=== PATIENT | female | born 1960 | race Caucasian/White ===

== ENCOUNTER 2021-01-25 09:09 | Inpatient (IN) | payer OTHER ==
[~2021-01-25] VITALS: Ht 165.1 cm; Wt 102.5 kg
[~2021-01-25 09:09] MED LIST: CELEXA20 MG PO; GUAIFENESIN-CO118 ML PO; NEURONTIN 300300 M1 PO; OMEPRAZOLE20 M2 PO; PROAIR HFA8.5 GM INH
[2021-01-25 09:21] VITALS: BP 141/84
[2021-01-25 10:11] LABS: ABSOLUTE LYMPHOCYTES 0.9 thou/uL (0.8-5.3); ABSOLUTE MONOCYTES 0.4 thou/uL (0.0-1.2); BASOPHILS 0.3 %; HEMATOCRIT 38.4 % (37.0-47.0); HEMOGLOBIN 12.8 gm/dL (12.0-15.0); LYMPHOCYTES 17.7 %; MCH 25.2 pg (26.0-34.0); MCHC 33.2 g/dL (28.0-37.0); MCV 75.9 fL (80.0-100.0); MONOCYTES 7.2 %; MPV 7.2 fl. (7.2-11.1); NUCLEATED RBCS 0 /100WBC; PLATELET COUNT* 240 thou/uL (150-400); POLYS 74.8 %; RBC 5.06 mil/uL (4.20-5.00); RDW-CV 15.1 % (10.5-14.5); WBC 5.3 thou/uL (4.0-11.0)
[2021-01-25 10:25] LABS: CALCIUM 7.6 mg/dL (8.5-10.1); CREATININE 0.8 mg/dL (0.6-1.3); POTASSIUM 3.5 mmol/L (3.5-5.1)
[2021-01-25 10:29] LABS: PCO2 38.6 mmHg (35.0-45.0); PO2 63.4 mmHg (75.0-100.0); pH 7.446 (7.340-7.450)
[2021-01-25 10:36] LABS: ALBUMIN 3.2 g/dL (3.4-5.0); TOTAL BILIRUBIN 0.5 mg/dL (<0.1-1.0); TOTAL PROTEIN 7.6 g/dL (6.4-8.2)
--- NOTE | 2021-01-25 15:44 | NUR ---
Patient taken to CT due to patients clastiphobia exam was not compleated
[2021-01-25 16:00] VITALS: BP 117/67; BP 149/79
--- NOTE | 2021-01-25 16:04 | EKG ---
[place] [address] ELECTROCARDIOGRAM REPORT Name: RUMATONO LARY Room: [place] [address] ADM IN .R.#: [id number] Admission: 01/25/21 Attend Phys: Reyes Sanchez, Discharge: Date of : 62 Date of Service: 01/25/21 0947 Report #: [id number] THIS REPORT FOR: //name// [facility] ED Test Date: 2021-01-25 Test Time: 09:47:05 Pat Name: TONO HENDRIX Department: Room: [facility] Gender: F Certified Nurse Midwife: TERESA : 1960 Requested By: Salbador Christian Order Number: [id number] MD: Alex Sams Measurements Intervals Mission Rate: 99 P: 45 WV: 139 QRS: -4 QRSD: 80 T: 24 QT: 334 QTc: 429 Interpretive Statements Sinus rhythm No previous ECG available for comparison Electronically Signed On 01-25-2021 16:04:24 CDT by Alex Sams [email or web address] <ELECTRONICALLY SIGNED> By: Alex Sams MD, [facility] 01/25/21 1604 0947 0947 Alex Sams MD, [facility] /EPI
--- NOTE | 2021-01-25 16:32 | NUR ---
PT ORIENTED TO ROOM AND UNIT, BED LOW AND LOCKED, SIDE RAILS UPX3, CALL LIGHT IN REACH, TELE APPLIED, ENHANCED PRECAUTIONS IN PLACE. PAGE PULMONOLOGY TO INFORM PT COULD NOT TOLERATE CHEST CT R/T CLAUSTROPHOBIA. WILL CONTINUE TO ASSESS.
--- NOTE | 2021-01-25 17:43 | NUR ---
PT OFF UNIT TO CT
[2021-01-25 20:00] VITALS: BP 137/88
[2021-01-25 23:40] VITALS: BP 127/79; BP 129/76
[2021-01-26 00:05] VITALS: BP 127/79
[2021-01-26 04:01] VITALS: BP 139/84
[2021-01-26 05:47] LABS: ABSOLUTE LYMPHOCYTES 0.8 thou/uL (0.8-5.3); ABSOLUTE MONOCYTES 0.4 thou/uL (0.0-1.2); ABSOLUTE NEUTROPHILS 3.1 thou/uL (1.6-8.1); BASOPHILS 0.1 %; HEMATOCRIT 36.2 % (37.0-47.0); LYMPHOCYTES 18.3 %; MCH 24.8 pg (26.0-34.0); MCHC 33.1 g/dL (28.0-37.0); MCV 74.7 fL (80.0-100.0); MONOCYTES 9.2 %; NUCLEATED RBCS 0 /100WBC; PLATELET COUNT* 261 thou/uL (150-400); POLYS 72.4 %; RBC 4.84 mil/uL (4.20-5.00); RDW-CV 14.5 % (10.5-14.5); WBC 4.3 thou/uL (4.0-11.0)
[2021-01-26 06:08] LABS: CALCIUM 8.8 mg/dL (8.5-10.1); CREATININE 0.8 mg/dL (0.6-1.3); POTASSIUM 4.1 mmol/L (3.5-5.1)
--- NOTE | 2021-01-26 07:15 | NUR ---
CHANGE OF SHIFT BEDSIDE REPORT GIVEN PATIENT SEEN AT BEDSIDE, IN BED RESTING ASSUMED PATIENT CARE
--- NOTE | 2021-01-26 07:41 | NUR ---
ASSUMED CARE OF PT AFTER REPORT AT 1930. PT A&OX4. VSS. PHYSICAL ASSESSMENT COMPLETED AND CHARTED. INCREASED O2 FROM NC 4L TO HEATED HI FLOW 80% 40L OVERNIGHT DUE TO EPISODES OF DESATURATION. PT DENIES ANY PAIN. HOOKED 1 UNIT OF CONVALESCENT PLASMA. PT ABLE TO SLEEP WELL ON BED. MAINTAINED ON ENHANCED ISOLATION. CALL LIGHT WITHIN REACH.
[2021-01-26 08:00] VITALS: BP 139/85
[2021-01-26 12:00] VITALS: BP 121/77
[2021-01-26 14:50] VITALS: BP 155/60; BP 163/86
[2021-01-26 20:00] VITALS: BP 121/77
[2021-01-27 00:14] VITALS: BP 120/65
--- NOTE | 2021-01-27 03:50 | NUR ---
ASSUMED CARE OF PT AFTER REPORT AT 1930. PT A&OX4. VSS. PHYSICAL ASSESSMENT COMPLETED AND CHARTED. PT ON O2 AT HEATED HIGHFLOW 75%/40L. PT TRACING SR ON TELE. PT UPADLIB TO BSC. PT DENIES ANY PAIN. MAINTAINED ON ENHANCED PRECAUTION. CALL LIGHT WITHIN REACH.
[2021-01-27 04:11] VITALS: BP 153/91
[2021-01-27 05:16] LABS: HEMATOCRIT 36.7 % (37.0-47.0); HEMOGLOBIN 12.1 gm/dL (12.0-15.0); MCHC 32.9 g/dL (28.0-37.0); MCV 75.8 fL (80.0-100.0); RBC 4.84 mil/uL (4.20-5.00); RDW-CV 14.5 % (10.5-14.5); WBC 10.9 thou/uL (4.0-11.0)
[2021-01-27 05:37] LABS: ALBUMIN 3.3 g/dL (3.4-5.0); CALCIUM 8.4 mg/dL (8.5-10.1); MAGNESIUM 2.3 mg/dL (1.8-2.4); POTASSIUM 3.6 mmol/L (3.5-5.1); TOTAL BILIRUBIN 0.2 mg/dL (<0.1-1.0); TOTAL PROTEIN 7.6 g/dL (6.4-8.2)
--- NOTE | 2021-01-27 07:25 | NUR ---
CHANGE OF SHIFT BEDSIDE REPORT GIVEN PATIENT SEEN AT BEDSIDE, IN BED RESTING ASSUMED PATIENT CARE
[2021-01-27 08:00] VITALS: BP 129/68
[2021-01-27 13:00] VITALS: BP 122/67
[2021-01-27 16:25] VITALS: BP 158/67
[2021-01-27 19:30] VITALS: BP 124/77
[2021-01-28 00:20] VITALS: BP 130/69
[2021-01-28 04:11] VITALS: BP 127/74
[2021-01-28 04:54] LABS: HEMATOCRIT 35.7 % (37.0-47.0); HEMOGLOBIN 11.7 gm/dL (12.0-15.0); MCHC 32.9 g/dL (28.0-37.0); MPV 6.8 fl. (7.2-11.1); RBC 4.7 mil/uL (4.20-5.00); RDW-CV 14.4 % (10.5-14.5); WBC 7.9 thou/uL (4.0-11.0)
[2021-01-28 05:19] LABS: ALBUMIN 3.1 g/dL (3.4-5.0); CALCIUM 8.2 mg/dL (8.5-10.1); CREATININE 0.9 mg/dL (0.6-1.3); MAGNESIUM 2.4 mg/dL (1.8-2.4); POTASSIUM 3.5 mmol/L (3.5-5.1); TOTAL BILIRUBIN 0.2 mg/dL (<0.1-1.0); TOTAL PROTEIN 6.9 g/dL (6.4-8.2)
--- NOTE | 2021-01-28 05:53 | NUR ---
PT SLEPT MOST OF SHIFT. ASSESSMENT DOCUMENTED. MEDS GIVEN PER E-MAR. IV PATENT. NO REPORTS OF PAIN. ISOLATION MAINTAINED. HHFNC WORN ALL SHIFT. ISOLATION MAINTAINED. WILL CONTINUE WITH PLAN OF CARE.
[2021-01-28 08:00] VITALS: BP 150/72
[2021-01-28 12:00] VITALS: BP 120/77
--- NOTE | 2021-01-28 12:26 | NUR ---
CM ASSESSMENT: PT COVID POSITIVE PRIOR TO ADMISSION PER INFECTION CONTROL NURSE. PT REMAINS UNDER ENHANCED PRECAUTIONS. PT REMAINS ON 45L O2. CM CONTACTED PT'S SPOUSE TO COMPLETE CM ASSESSMENT. PT'S SPOUSE INFORMS THAT THE PT IS NORMALLY VERY INDEPENDENT AND ACTIVE. PT USES 0 DME. PT HAS 0 HX OF HH OR SNF. CM D/C PLANNING NEEDS AT D AT THIS TIME. HOWEVER PT MAY NEED HOME 02 AT D/C PENDING ABILITY TO WEAN PT'S O2 NEEDS. CM WILL REMAIN AVAILABLE TO ASSIST AND FOLLOW NEEDED.
[2021-01-28 16:00] VITALS: BP 123/79
--- NOTE | 2021-01-28 16:48 | 2DMMODE ---
[place] [address] 2 D/M-MODE ECHOCARDIOGRAM Name: RUMATONO LARY Room: [place] [address] ADM IN .R.#: [id number] Admission: 01/25/21 Attend Phys: Reyes Sanchez, Discharge: Date of : 62 Date of Service: 01/28/21 1648 Report #: [id number] THIS REPORT FOR: cc: Matthew Rodas John E. DO Holkins,Matthew Perez MD [facility] ~ APPROVED REPORT Study performed: 01/28/2021 15:10:13 EXAM: Comprehensive 2D, Doppler, and color-flow Echocardiogram Patient Location: In-Patient Room #: 233 Status: routine BSA: 2.08 HR: 81 bpm BP: 150/72 mmHg Rhythm: NSR Other Information Study Quality: Good Indications Dyspnea 2D Dimensions IVSd: 12.69 (7-11mm) LVOT Diam: 21.37 (18-24mm) LVDd: 43.30 mm PWd: 11.78 (7-11mm) Ascending Ao: 33.45 (22-36mm) LVDs: 19.52 (25-40mm) Aortic Root: 34.60 mm Volumes Left Atrial Volume (Systole) LA ESV Index: 22.50 mL/m2 Aortic Valve AoV Peak Raheem.: 1.61 m/s AO Peak Gr.: 10.41 mmHg LVOT Max P.04 mmHg AO Mean Gr.: 5.76 mmHg LVOT Mean P.46 mmHg LVOT Max V: 1.58 m/s AO V2 VTI: 29.66 cm LVOT Mean V: 0.95 m/s NAYA (VTI): 3.49 cm2 LVOT V1 VTI: 28.89 [place] [address] 2 D/M-MODE ECHOCARDIOGRAM Name: TONO HENDRIX Room: [address] IN ..#: [id number] Admission: 01/25/21 Attend Phys: Reyes Sanchez, Discharge: Date of : 62 Date of Service: 01/28/21 1648 Report #: [id number] Mitral Valve E/A Ratio: 1.08 MV Decel. Time: 235.51 ms MV E Max Raheem.: 0.96 m/s MV PHT: 68.30 ms MVA (PHT): 3.22 cm2 TDI E/Lateral E': 19.20 E/Medial E': 9.60 Medial E' Raheem.: 0.10 m/s Lateral E' Raheem.: 0.05 m/s Pulmonary Valve PV Peak Raheem.: 1.20 m/s PV Peak Gr.: 5.80 mmHg Tricuspid Valve RAP Estimate: 5.00 mmHg TR Peak Gr.: 17.88 mmHg RVSP: 22.00 mmHg PA Pressure: 22.00 mmHg Left Ventricle The left ventricle is normal size. There is normal LV segmental wall motion. There is normal left ventricular wall thickness. Left ventricular systolic function is normal. The left ventricular ejection fraction is within the normal range. LVEF is 65-70%. Grade I - abnormal relaxation pattern. Right Ventricle The right ventricle is normal size. The right ventricular systolic function is normal. Atria The left atrium size is normal. The right atrium size is normal. Aortic Valve The aortic valve is normal in structure. No aortic regurgitation is present. There is no aortic valvular stenosis. Mitral Valve Mild mitral annular calcification. Trace mitral regurgitation. No evidence of mitral valve stenosis. Tricuspid Valve The tricuspid valve is normal in structure. Trace tricuspid regurgitation. [place] [address] 2 D/M-MODE ECHOCARDIOGRAM Name: TONO HENDRIX Room: [address] IN [facility]#: [id number] Admission: 01/25/21 Attend Phys: Reyes Sanchez, Discharge: Date of : 62 Date of Service: 01/28/21 1648 Report #: [id number] Pulmonic Valve The pulmonary valve is normal in structure. There is no pulmonic valvular regurgitation. Great Vessels The aortic root is normal in size. IVC is normal in size and collapses >50% with inspiration. Pericardium There is no pericardial effusion. <Conclusion> The left ventricle is normal size. Left ventricular systolic function is normal. The left ventricular ejection fraction is within the normal range. LVEF is 65-70%. Grade I - abnormal relaxation pattern. The right ventricle is normal size. The left atrium size is normal. The aortic valve is normal in structure. Mild mitral annular calcification. Trace mitral regurgitation. The tricuspid valve is normal in structure. IVC is normal in size and collapses >50% with inspiration. There is no pericardial effusion. There is normal LV segmental wall motion. <ELECTRONICALLY SIGNED> By: Matthew Archer MD, FACC 01/28/211647 47 47 Matthew Archer MD, FACC /INF
[2021-01-28 19:30] VITALS: BP 130/70
[2021-01-29 00:34] VITALS: BP 145/83
[2021-01-29 04:41] LABS: ABSOLUTE LYMPHOCYTES 1.1 thou/uL (0.8-5.3); ABSOLUTE MONOCYTES 0.4 thou/uL (0.0-1.2); ABSOLUTE NEUTROPHILS 6.1 thou/uL (1.6-8.1); BASOPHILS 0.1 %; HEMATOCRIT 35.7 % (37.0-47.0); HEMOGLOBIN 11.7 gm/dL (12.0-15.0); LYMPHOCYTES 14.8 %; MCH 24.7 pg (26.0-34.0); MCHC 32.9 g/dL (28.0-37.0); MCV 75.1 fL (80.0-100.0); MONOCYTES 5.2 %; MPV 6.9 fl. (7.2-11.1); NUCLEATED RBCS 0 /100WBC; PLATELET COUNT* 349 thou/uL (150-400); POLYS 79.9 %; RBC 4.75 mil/uL (4.20-5.00); RDW-CV 14.3 % (10.5-14.5); WBC 7.6 thou/uL (4.0-11.0)
[2021-01-29 04:49] VITALS: BP 140/83
[2021-01-29 04:54] LABS: ALBUMIN 3.3 g/dL (3.4-5.0); CALCIUM 8.4 mg/dL (8.5-10.1); CREATININE 0.8 mg/dL (0.6-1.3); MAGNESIUM 2.4 mg/dL (1.8-2.4); POTASSIUM 4.4 mmol/L (3.5-5.1); TOTAL BILIRUBIN 0.2 mg/dL (<0.1-1.0); TOTAL PROTEIN 6.7 g/dL (6.4-8.2)
--- NOTE | 2021-01-29 05:47 | NUR ---
PT SLEPT MOST OF SHIFT. ASSESSMENT DOCUMENTED. MEDS GIVEN PER E-OCT. IV PATENT. NO REPORTS OF PAIN. PT REMAINED ON HHFNC THIS SHIFT. ISOLATION MAINTAINED. PT ABLE TO MAKE NEEDS KNOWN. WILL CONTINUE WITH PLAN OF CARE.
--- NOTE | 2021-01-29 06:48 | NUR ---
PT DESATING INTO THE LOW 70'S THIS AM, O2 INCREASED FROM 35L AT 60% TO 40L AT 65%
--- NOTE | 2021-01-29 07:25 | NUR ---
CHANGE OF SHIFT BEDSIDE REPORT GIVEN PATIENT SEEN AT BEDSIDE, IN BED WATCHING TV ASSUMED PATIENT CARE
[2021-01-29 08:00] VITALS: BP 132/673
--- NOTE | 2021-01-29 08:58 | CON ---
[address] [address] CONSULTATION Name: TONO HENDRIX Room: [address] IN .R.#: [id number] Admission: 01/25/21 Attend Phys: Reyes Sanchez MD Discharge: Date of : 62 Report #: [id number] THIS REPORT FOR: cc: Matthew Rodas John E. DO Pervez, Adeel MD ~ DOC #: [id number] Saul Spence MD DATE OF CONSULTATION: 01/25/2021 Consult has been requested by Dr. Reyes Sanchez. INDICATION FOR CONSULTATION: COVID-19. HISTORY OF PRESENT ILLNESS: A 60-year-old female with past medical history as mentioned below. This does not include a history of a cardiac or respiratory disease. The patient also is a lifetime nonsmoker. The patient is now admitted with acutely worsening shortness of breath. The patient has also been tachycardic and she was hypoxemic on admission. She is currently requiring 3-4 liters of oxygen to maintain O2 saturation in the low 90s. The patient reports that her whole family has been diagnosed with COVID-19. She is also coughing and this time does have shortness of breath at rest. She says she is bringing up small amounts of yellow and white sputum. There is no chest pain. She does not have upper respiratory complaints. There is mild swelling of lower extremities. She does not have calf pain. The patient reports that she has had a fever. REVIEW OF SYSTEMS: The patient's review of systems for 12 points is negative except as mentioned above. PAST MEDICAL HISTORY: Right knee surgery, back surgery, shoulder surgery, right UNI. I understand it is an abbreviation and it is not known to me what it is being abbreviated here, , hysterectomy. SOCIAL HISTORY: Lifetime nonsmoker. No known history of heavy alcohol use or illegal drug use. CURRENT MEDICATIONS: List in [facility] reviewed. Home medication list in [facility] reviewed as well. Note that she is on a PPI at home. ALLERGIES: REPORTEDLY ALLERGIC TO PENICILLIN; however, tolerates cephalosporins without problems. FAMILY HISTORY: There is a history of COVID-19 [place] [address] CONSULTATION Name: TONO HENDRIX Room: [address] IN [facility]#: [id number] Admission: 01/25/21 Attend Phys: Reyes Sanchez MD Discharge: Date of : 62 Report #: [id number] PHYSICAL EXAMINATION: GENERAL: She is alert, awake and oriented, did appear to be short of breath at rest. VITAL SIGNS: She was tachycardic with a heart rate of around 110, blood pressure was 120/67. She was requiring 4 liters of oxygen to maintain O2 saturation in the low 90s. Respiratory rate was elevated to 22-23. She was afebrile with a temperature of 36.3. Body mass index is elevated to 36. HEAD: Normocephalic and atraumatic. NECK: Does not show raised JVP asymmetry, mass or lymph nodes. CHEST: Symmetrical expansion on inspection and palpation. On auscultation, there are fairly significant rales. There are considerable rales heard at bilateral lung bases, also some at mid zones. The amount of rales heard on exam is significantly out of proportion to the chest x-ray findings from this morning. HEART: Regular. There is no murmur. ABDOMEN: Soft and nontender. EXTREMITIES: Lower extremities show trace edema. There is no calf tenderness. SKIN: Dry and intact. NEUROLOGIC: Moves all extremities bilaterally equally and spontaneously with no focal deficit identified. LABORATORY DATA: The patient's chest x-ray does show some infiltrates, which are interstitial and consistent with COVID-19 as above. The physical examination findings are out of proportion to this x-ray. The patient's lab work in [facility] reviewed. COVID-19 antigen is positive. D-dimer is elevated. Arterial blood gas in [facility] reviewed. ASSESSMENT AND PLAN: 1. Acute hypoxemic respiratory failure secondary to COVID-19. Continue to titrate oxygen. I will go ahead and give her Brovana as well. Note that, her body mass index is elevated; therefore, if she was to deteriorate, I would recommend having a low threshold of using BiPAP. Her proBNP is not elevated. She has mild edema on exam and as below, I will give her a unit of convalescent plasma, which will be some volume, therefore I cautiously went ahead and ordered a dose of Lasix as well. We will replace potassium. 2. COVID-19, we will treat her with dexamethasone. She has already received 125 of Solu-Medrol yesterday and 10 of dexamethasone today. Since I did request Actemra, today I kept the dexamethasone dose at least 6 mg beginning tomorrow, considering that she is only on low flow oxygen, but if her respiratory status is to decline and in that case, I would recommend increasing dexamethasone. I would also go ahead and treat her with 5 doses of remdesivir, recommend following LFTs. I ordered 1 unit of convalescent plasma today as above with 40 of Lasix. If she fails to improve, then I suggest considering giving her one more unit of convalescent plasma tomorrow morning. [facility] [address] [place] [address] CONSULTATION Name: RUMATONO Room: [place] [address] ADM IN M.R.#: [id number] Admission: 01/25/21 Attend Phys: Reyes Sanchez MD Discharge: Date of : 62 Report #: [id number] 3. Elevated D-dimer/evaluation for thromboembolic phenomena. The patient is having a CTA chest today. We will follow results as above. I did give her 40 of Lasix. We will watch creatinine. 4. Pulmonary infiltrates, primarily she appears to have COVID-19; however, I agree with covering for secondary bacterial infections. She is on ceftriaxone and Zithromax. We will continue with the same. I switched her Zithromax over to p.o. We will send off a nasal swab for MRSA as well as sputum culture. 5. Deep venous thrombosis prophylaxis. She is on Lovenox. 6. Gastrointestinal prophylaxis. Note that, she is on omeprazole at home. We will keep her on Protonix. 7. Clostridium difficile prophylaxis, Lactinex. Thanks for this consultation. Saul Spence MD AP/ASHUTOSH/MICHAEL <ELECTRONICALLY SIGNED> By: Saul Spence MD 01/29/21 0858 1707 [id number] Spence MD /christina
[2021-01-29 12:13] VITALS: BP 115/73
--- NOTE | 2021-01-29 14:19 | NUR ---
PLAN OF CARE: PHYSICIAN INFORMS OF PLAN FOR THE PT TO REMAIN INPT AT THIS TIME. PT COVID POSITIVE AND REMAINS UNDER ENHANCED PRECAUTIONS. PT REMAINS ON 35L O2 AT THIS TIME. PRIOR TO ADMIT PT ACTIVE, INDEPDENT WITH ADL'S, AND USED 0 DME. CM D/C PLANNING NEEDS TBD AT THIS TIME. PT MAY NEED HOME O2 AND HH PENDING BEING ABLE TO WEAN PT'S O2 NEEDS AND MOBILITY. CM WILL REMAIN AVAILABLE TO ASSIST AND FOLLOW NEEDED.
[2021-01-29 17:24] VITALS: BP 130/74
[2021-01-29 20:49] VITALS: BP 119/66
[2021-01-30] VITALS (7 sets, daily range): BP systolic 110–135; BP diastolic 52–91
[2021-01-30 04:13] LABS: HEMATOCRIT 35.7 % (37.0-47.0); HEMOGLOBIN 11.9 gm/dL (12.0-15.0); MCH 25.2 pg (26.0-34.0); MCHC 33.4 g/dL (28.0-37.0); MCV 75.6 fL (80.0-100.0); MPV 6.8 fl. (7.2-11.1); NUCLEATED RBCS 0 /100WBC; PLATELET COUNT* 339 thou/uL (150-400); RBC 4.73 mil/uL (4.20-5.00); RDW-CV 14.3 % (10.5-14.5); WBC 8.3 thou/uL (4.0-11.0)
[2021-01-30 04:30] LABS: ALBUMIN 3.3 g/dL (3.4-5.0); CALCIUM 8.2 mg/dL (8.5-10.1); CREATININE 0.9 mg/dL (0.6-1.3); MAGNESIUM 2.3 mg/dL (1.8-2.4); POTASSIUM 4.3 mmol/L (3.5-5.1); TOTAL BILIRUBIN 0.4 mg/dL (<0.1-1.0)
[2021-01-30 05:43] LABS: ABSOLUTE LYMPHOCYTES 1.2 thou/uL (0.8-5.3); ABSOLUTE MONOCYTES 0.1 thou/uL (0.0-1.2); ANISOCYTOSIS 1+; PLATELET ESTIMATE ADEQUATE; POIKILOCYTOSIS 1+
--- NOTE | 2021-01-30 08:07 | NUR ---
PT IS ABLE TO COMMUNICATE HER NEEDS TO STAFF EFFECTIVELY. SHE HAS DENIED THE NEED FOR PAIN MEDICATION UP TO 0700 THIS MORNING. ENHANCED PRERCAUTIONS, FOR A POSITIVE COVID-19 TEST, MAINTAINED.
--- NOTE | 2021-01-30 15:56 | NUR ---
PLAN OF CARE: PHYSICIAN INFORMS OF PLAN FOR PT TO REMAIN INPT FOR A FEW MORE DAYS AND PLAN TO WEAN PT'S O2 NEEDS. PT COVID POSITIVE AND REMAINS IN ENHANCED ISOLATION. PT CURRENTLY ON 15L O2. PT MAY NEED HOME OXYGEN AT D/C AND POSSIBLY HH. D/C PLANNING NEEDS TBD. CM WILL REMAIN AVAILABLE TO ASSIST AND FOLLOW NEEDED.
--- NOTE | 2021-01-30 18:21 | NUR ---
MAIL LIST LIBRARIAN TRACKING SR TO ST. UP AD DANY IN ROOM, GAIT STEADY. 02 TITRATED TO 10HF NC. PATIENT APPEARS TO BE FEELING BETTER, LESS SOA WITH ACTIVITY. GIVEN TYLENOL EARLIER FOR COMPLAINTS OF HEADACHE, REPORTING PARTIAL RELIEF. CALL LIGHT WITHIN REACH, WILL CONTINUE WITH PLAN OF CARE.
[2021-01-31 08:24] VITALS: BP 110/72
--- NOTE | 2021-01-31 10:54 | NUR ---
ASSUMED CARE OF PT THIS AM AROUND 07- ACADEMIC AFFAIRS MANAGER IN PLACE ORDERED, TRACING SR- UPON ASSESSMENT PT NOTED TO BE RESTING IN BED- PT A&O X4- CONT OF B/B- UP AD-DANY TO BED SIDE COMMODE- COURSE LUNG SOUNDS NOTED OT UPPER LOBES/DIMINSHED IN BASES-DYSPNEA NOTED ON EXERTION- VSS, O2 SAT 98% ON 7.5L HF-REPORTED PRODUCTIVE COUGH-ABD SOFT/ROUND/NON-TENDER, BS X4 QUADS- LAST BM REPORTED X2 DAYS AGO- IV NOTED TO LEFT AC INTACT AND SL, IV ABTN GIVEN THIS AM PRESCRIBED- GOOD PO INTAKE NOTED THIS AM WITH BREAKFAST, BS MONITORED ORDERED-ISOLATION IN PLACE AND MAINTAINED INDICATED R/T COVID-PT DENIES ANY C/O PAIN/DISCOMFORT AT THIS TIME- CALL LIGHT AND PERSONAL BELONGINGS WITH IN REACH- ALL NEEDS MET AT THIS TIME
[2021-01-31 11:32] VITALS: BP 129/66
--- NOTE | 2021-01-31 12:59 | NUR ---
PLAN OF CARE: PHYSICIAN INFORMS OF PLAN FOR THE PT TO POSSIBLY REMAIN INPT THROUGH THE WEEKEND. PT COVID POSITIVE AND REMAINS IN ENHANCED PRECAUTIONS. PT REMAINS ON 7.5L O2 AND BIPAP AT [facility]. PT MAY NEED HH AND HOME OXYGEN AT D/C. CM WILL REMAIN AVAILABLE TO ASSIST AND FOLLOW NEEDED.
[2021-01-31 13:15] LABS: CALCIUM 8.6 mg/dL (8.5-10.1); CREATININE 0.9 mg/dL (0.6-1.3); MAGNESIUM 2.4 mg/dL (1.8-2.4); POTASSIUM 3.4 mmol/L (3.5-5.1)
[2021-01-31 15:36] VITALS: BP 123/63
[2021-01-31 20:39] VITALS: BP 132/84
[2021-02-01] VITALS: BP 148/85
[2021-02-01 04:00] VITALS: BP 139/85
[2021-02-01 05:45] LABS: ABSOLUTE LYMPHOCYTES 1.1 thou/uL (0.8-5.3); ABSOLUTE MONOCYTES 0.4 thou/uL (0.0-1.2); ABSOLUTE NEUTROPHILS 10.9 thou/uL (1.6-8.1); BASOPHILS 0.2 %; HEMATOCRIT 37.1 % (37.0-47.0); HEMOGLOBIN 12.2 gm/dL (12.0-15.0); LYMPHOCYTES 8.8 %; MCH 24.7 pg (26.0-34.0); MCHC 32.9 g/dL (28.0-37.0); MCV 75.1 fL (80.0-100.0); MONOCYTES 3.2 %; NUCLEATED RBCS 0 /100WBC; PLATELET COUNT* 353 thou/uL (150-400); POLYS 87.8 %; RBC 4.94 mil/uL (4.20-5.00); RDW-CV 14.2 % (10.5-14.5); WBC 12.4 thou/uL (4.0-11.0)
--- NOTE | 2021-02-01 06:15 | NUR ---
PT IS ABLE TO COMMUNICATE HER NEEDS TO STAFF EFFECTIVELY. SHE HAS DENIED THE NEED FOR PAIN MEDICATION UP TO THIS TIME. RT AND INBOUND CALL CENTER REPRESENTATIVE TITRATING PT O2 DOWN CLINICALLY APPROPRIATE. POSSIBLE DISCHARGE SOON.
[2021-02-01 06:39] LABS: ALBUMIN 3.3 g/dL (3.4-5.0); CALCIUM 8.3 mg/dL (8.5-10.1); CREATININE 0.9 mg/dL (0.6-1.3); MAGNESIUM 2.3 mg/dL (1.8-2.4); POTASSIUM 5.1 mmol/L (3.5-5.1); TOTAL BILIRUBIN 0.5 mg/dL (<0.1-1.0); TOTAL PROTEIN 6.7 g/dL (6.4-8.2)
[2021-02-01 08:09] VITALS: BP 108/60
--- NOTE | 2021-02-01 09:56 | NUR ---
ASSUMED CARE OF PT THIS AM AROUND 0715- EMBRYOLOGY TEACHER IN PLACE ORDERED, TRACING SR- UPON ASSESSMENT PT NOTED TO BE UP RESTING IN BED SIDE RECLINER-PT A&O X4- CONT OF B/B- UP AD-DANY IN ROOM, STEADY GAIT NOTED- VSS, O2 SAT 97% ON 3L VIA NC THIS AM- DYSPNEA CONTINUES ON EXERTION- ABD SOFT/ROUND/NON-TENDER, BS X4 QUADS- LAST BM REPORTED X3 DAYS AGO-IV NOTED TO LEFT AC INTACT AND SL, IV ABT GIVEN THIS AM PRESCRIBED- GOOD PO INTAKE NOTED THIS AM WITH BREAKFAST- BS MONITORED ORDERED, SSI PRESCRIBED- PT DENIES ANY C/O PAIN- CALL LIGHT AND PERSONAL BELONGINGS WITH IN REACH- PT MAKES NEEDS KNOWN- ALL NEEDS MET AT THIS TIME
[2021-02-01 11:30] VITALS: BP 115/74
--- NOTE | 2021-02-01 11:59 | NUR ---
Nutrition: screen for LOS. Wt up from admit. Nsg noted good intake at breakfast past two days. BUN 19, albumin 3.3. Dexamethaxone, insulin, probiotic and other meds reviewed. Assessed at low nutrition risk at this time.
--- NOTE | 2021-02-01 13:43 | NUR ---
PLAN OF CARE: PHYSICIAN INFORMS OF PLAN TO POSSIBLY D/C PT HOME TOMORROW, AND THAT PT MAY NEED HOME OXYGEN AT D/C. PT DID NOT HAVE HOME OXYGEN PRIOR TO ADMIT. PT WILL NEED R.T. REST AND EXERCISE TESTING COMPLETED THE MORNING OF D/C TO ASSIST WITH ARRANGING DME IF NEEDED. CM TO DISCUSS THIS WITH THE PT WELL CHOICE OF DME COMPANY IF NEEDED. CM WILL REMAIN AVAILABLE TO ASSIST AND FOLLOW NEEDED.
[2021-02-01 15:37] VITALS: BP 132/78
[2021-02-01 20:00] VITALS: BP 119/84
--- NOTE | 2021-02-02 02:22 | NUR ---
ASSUMED CARE OF PATIENT AT 1900. PATIENT RESTING IN BED. O2 TITRATED TO 1L. DENIES PAIN, SOA OR N/V. CALLS OUT NEEDED. PROGRESSING TOWARDS POC GOALS.
[2021-02-02 04:00] VITALS: BP 152/86
[2021-02-02] MEDS ORDERED: VENTOLIN HFA 1818 GM INH (08:35)
[2021-02-02] MEDS ORDERED: ACIDOPHILUS1 EAC4 PO (08:35)
[2021-02-02] MEDS ORDERED: DECADRON6 MG PO (08:35)
[2021-02-02 09:30] VITALS: BP 101/65
[2021-02-02 11:19] VITALS: BP 101/65
--- NOTE | 2021-02-02 13:42 | NUR ---
PT. AOX4, VSS, DENIES PAIN OR DISCOMFORT, TOLERATES ROOM AIR, CALL LIGHT AND PERSONAL BELONGINGS WITHIN REACH, ON COVID ISOLATION PRECAUTIONS. DC ORDERS RECERIVED, DC PACKET GIVEN, PT VERBALIZED UNDERSTANDING OF CONTENTS OF PACKET. PT. LEFT UNIT BY WHEELCHAIR AND PICKED UP BY FAMILY MEMBER AT ER ENTRANCE. PT. IN STABLE CONDITION AT TIME OF LEAVING UNIT.
== END 2021-02-02 11:30 | disposition home or self-care (01) | DRG 177 ==
LOC: M.ERS 09:09 → M.TBA-ER 10:42 → M.2W 10:42
PROVIDERS: Emergency Medicine; Internal Medicine; Internal Medicine Critical Care Medicine; ADMIT Internal Medicine; ATTEND Internal Medicine
PROC: XW033E5 Introduction of Remdesivir Anti-infective into Peripheral Vein, Percutaneous Approach, New Technology Group 5 (ICD-10-PCS; principal; 2021-01-25)
PROC: XW13325 Transfusion of Convalescent Plasma (Nonautologous) into Peripheral Vein, Percutaneous Approach, New Technology Group 5 (ICD-10-PCS; principal; 2021-01-25)
PROC: 5A0945A Assistance with Respiratory Ventilation, 24-96 Consecutive Hours, High Flow/Velocity Cannula (ICD-10-PCS; 2021-01-26)
PROC: 5A09357 Assistance with Respiratory Ventilation, Less than 24 Consecutive Hours, Continuous Positive Airway Pressure (ICD-10-PCS; 2021-01-30)
PROC: 5A0935A Assistance with Respiratory Ventilation, Less than 24 Consecutive Hours, High Flow/Velocity Cannula (ICD-10-PCS; 2021-01-31)
PROC: 5A09357 Assistance with Respiratory Ventilation, Less than 24 Consecutive Hours, Continuous Positive Airway Pressure (ICD-10-PCS; 2021-01-31)
DX: U07.1 COVID-19 (principal); J12.82 Pneumonia due to coronavirus disease 2019; J96.01 Acute respiratory failure with hypoxia; R65.10 Systemic inflammatory response syndrome (SIRS) of non-infectious origin without acute organ dysfunction; Z90.710 Acquired absence of both cervix and uterus; Z98.891 History of uterine scar from previous surgery; Z88.0 Allergy status to penicillin; Z79.899 Other long term (current) drug therapy